=== PATIENT | female | born 1930 | race Native Hawaiian/Other Pacific Islander ===

== ENCOUNTER 2016-06-28 14:13 | Outpatient (CLI) | payer OTHER ==
[2016-06-28 14:25] LABS: PLATELET COUNT 172 K/uL (152-353)
== END 2016-06-28 15:30 | disposition home or self-care (01) ==
LOC: LAB 14:13
PROVIDERS: Nurse Practitioner Family
DX: I10 Essential (primary) hypertension (principal); E78.4 Other hyperlipidemia; E03.8 Other specified hypothyroidism; R53.83 Other fatigue; R53.81 Other malaise; E55.9 Vitamin D deficiency, unspecified; E78.00 Pure hypercholesterolemia, unspecified
CPT/HCPCS: 80053; 80061; 82306; 82607; 83036; 84436; 84443; 85027

== ENCOUNTER 2016-12-27 12:58 | Outpatient (CLI) | payer OTHER ==
[2016-12-27 13:18] LABS: PLATELET COUNT 186 K/uL (152-353)
[2016-12-27 13:48] LABS: POTASSIUM 4.1 mmol/L (3.6-5.2)
== END 2016-12-27 19:00 | disposition home or self-care (01) ==
LOC: LAB 12:58
PROVIDERS: Nurse Practitioner Family
DX: I10 Essential (primary) hypertension (principal); E03.8 Other specified hypothyroidism; E78.4 Other hyperlipidemia; Z79.899 Other long term (current) drug therapy; Z51.81 Encounter for therapeutic drug level monitoring
CPT/HCPCS: 80053; 80061; 83036; 84436; 84443; 85027

== ENCOUNTER 2017-03-04 08:52 | Emergency (ER) | payer OTHER ==
[~2017-03-04] VITALS: Ht 160 cm; Wt 59.4 kg
[2017-03-04 09:01] VITALS: TEMP 98.9
[2017-03-04] MEDS ORDERED: LISI10TA11 PO (09:04)
[2017-03-04 10:35] LABS: PLATELET COUNT 181 K/uL (152-353)
[2017-03-04 11:03] VITALS: BP 158/74
== END 2017-03-04 11:11 | disposition home or self-care (01) ==
LOC: ED 08:52
DX: S93.691A Other sprain of right foot, initial encounter (principal); S96.811A Strain of other specified muscles and tendons at ankle and foot level, right foot, initial encounter
CPT/HCPCS: 84550; 85027; 99283; J2930

== ENCOUNTER 2017-03-28 09:14 | Inpatient (IN) | payer OTHER ==
[~2017-03-28] VITALS: Ht 157.5 cm; Wt 59.0 kg
[2017-03-28] VITALS (32 sets, daily range): BP systolic 69–109; BP diastolic 33–74; TEMP 97–98.3; Ht 157.5 cm; Wt 59.0 kg
[~2017-03-28 09:14] MED LIST: LISI10TA11 PO
[2017-03-28 09:48] LABS: PLATELET COUNT 230 K/uL (152-353)
[2017-03-28 10:01] LABS: POTASSIUM 4.7 mmol/L (3.6-5.2)
[2017-03-28 15:31] LABS: PARTIAL THROMBOPLASTIN TIME 28.8 SECONDS (24.5-33.6)
== END 2017-03-28 21:52 | disposition short-term general hospital (02) | DRG 280 ==
LOC: ED 09:14 → ICU 11:00
PROVIDERS: ADMIT Family Medicine
DX: I21.4 Non-ST elevation (NSTEMI) myocardial infarction (principal); J18.8 Other pneumonia, unspecified organism; N17.8 Other acute kidney failure; E87.1 Hypo-osmolality and hyponatremia; I95.89 Other hypotension; R11.2 Nausea with vomiting, unspecified; E03.8 Other specified hypothyroidism; I10 Essential (primary) hypertension; K52.89 Other specified noninfective gastroenteritis and colitis; I25.5 Ischemic cardiomyopathy; D72.828 Other elevated white blood cell count
CPT/HCPCS: 36415; 80048; 81000; 82550; 82553; 83605; 84443; 84484; 85027; 85610; 85730; 87088; 93005; 94760; 96361; 96365; 99285; J0696; J1644; J1956; J2405; J3490

== ENCOUNTER 2017-03-28 17:41 | Outpatient (CLI) | payer OTHER | END 2017-03-28 18:13 | disposition short-term general hospital (02) | LOC: AMB 17:41 | DX: I21.4 Non-ST elevation (NSTEMI) myocardial infarction (principal); J18.8 Other pneumonia, unspecified organism; N17.8 Other acute kidney failure; E87.1 Hypo-osmolality and hyponatremia; I95.89 Other hypotension; R11.2 Nausea with vomiting, unspecified; E03.8 Other specified hypothyroidism; I10 Essential (primary) hypertension; K52.89 Other specified noninfective gastroenteritis and colitis; I25.5 Ischemic cardiomyopathy; D72.828 Other elevated white blood cell count | CPT/HCPCS: A0425; A0427 ==

== ENCOUNTER 2017-04-10 12:55 | Outpatient (CLI) | payer OTHER ==
[2017-04-10 13:39] LABS: PLATELET COUNT 204 K/uL (152-353)
[2017-04-10 15:57] LABS: POTASSIUM 3.9 mmol/L (3.6-5.2); SODIUM 139.6 mmol/L (136-145)
[2017-04-10 15:58] LABS: LDL CHOLESTEROL 87.1 mg/dL (0-99*)
== END 2017-04-10 19:50 | disposition home or self-care (01) ==
LOC: LAB 12:55
PROVIDERS: Nurse Practitioner Family
DX: E78.4 Other hyperlipidemia (principal); E03.8 Other specified hypothyroidism; I10 Essential (primary) hypertension; R53.83 Other fatigue; R53.81 Other malaise; I95.89 Other hypotension; Z79.899 Other long term (current) drug therapy; Z51.81 Encounter for therapeutic drug level monitoring; R06.09 Other forms of dyspnea
CPT/HCPCS: 80053; 80061; 83036; 83880; 84436; 84443; 85027

== ENCOUNTER 2017-10-11 11:03 | Outpatient (CLI) | payer OTHER ==
[2017-10-11 11:23] LABS: PLATELET COUNT 230 K/uL (152-353)
[2017-10-11 11:30] LABS: POTASSIUM 4.6 mmol/L (3.6-5.2)
== END 2017-10-11 19:31 | disposition home or self-care (01) ==
LOC: LAB 11:03
PROVIDERS: Nurse Practitioner Family
DX: Z00.00 Encounter for general adult medical examination without abnormal findings (principal); E78.5 Hyperlipidemia, unspecified; E03.9 Hypothyroidism, unspecified; I10 Essential (primary) hypertension; R53.83 Other fatigue; Z79.899 Other long term (current) drug therapy; R53.81 Other malaise; R06.09 Other forms of dyspnea
CPT/HCPCS: 80053; 80061; 83036; 83880; 84436; 84443; 85027

== ENCOUNTER 2017-10-25 06:13 | Emergency (ER) | payer OTHER ==
[~2017-10-25] VITALS: Ht 160 cm; Wt 59.9 kg
[2017-10-25 06:10] VITALS: TEMP 98
[2017-10-25 06:45] LABS: PLATELET COUNT 231 K/uL (152-353)
[2017-10-25 06:50] LABS: POTASSIUM 4.7 mmol/L (3.6-5.2)
[2017-10-25 09:00] VITALS: BP 135/57
== END 2017-10-25 09:00 | disposition short-term general hospital (02) ==
LOC: ED 06:13
PROVIDERS: Emergency Medicine
DX: R07.89 Other chest pain (principal); I48.91 Unspecified atrial fibrillation; I44.7 Left bundle-branch block, unspecified
CPT/HCPCS: 36415; 80053; 82550; 82553; 84484; 85027; 93005; 96374; 99284; J2270

== ENCOUNTER 2017-10-25 09:03 | Outpatient (CLI) | payer OTHER, MEDICARE | END 2017-10-25 09:42 | disposition short-term general hospital (02) | LOC: AMB 09:03 | DX: R07.89 Other chest pain (principal); I48.91 Unspecified atrial fibrillation; I44.7 Left bundle-branch block, unspecified | CPT/HCPCS: A0425; A0427 ==

== ENCOUNTER 2018-04-26 03:19 | Inpatient (IN) | payer OTHER, MEDICARE ==
[2018-04-26] VITALS (7 sets, daily range): BP systolic 100–144; BP diastolic 48–89; TEMP 97.7–99.2; Ht 160 cm; Wt 60.0 kg
[~2018-04-26] VITALS: Ht 160 cm; Wt 60.0 kg
[2018-04-26 03:53] LABS: PLATELET COUNT 392 K/uL (152-353)
[2018-04-26 03:58] LABS: POTASSIUM 4.4 mmol/L (3.6-5.2)
[2018-04-26] MEDS ORDERED: AMIODARONE HYD200 MG PO (08:31)
[2018-04-26] MEDS ORDERED: CARV6.25 PO (08:32)
[2018-04-26] MEDS ORDERED: ASA LOW DOSE81 MG PO (08:32)
[2018-04-26] MEDS ORDERED: PANTOPRAZOLE 40MG TA PO (08:32)
[2018-04-26] MEDS ORDERED: LEVO0.0218 PO (08:33)
[2018-04-26] MEDS ORDERED: FURO20TA67 PO (08:33)
[2018-04-26] MEDS ORDERED: DOCU100C10 PO (08:33)
[2018-04-26] MEDS ORDERED: LIPITOR20 MG PO (08:34)
[2018-04-27 04:00] VITALS: BP 88/44; TEMP 98.3
[2018-04-27 05:34] LABS: PLATELET COUNT 335 K/uL (152-353)
[2018-04-27 05:50] LABS: POTASSIUM 4.6 mmol/L (3.6-5.2)
== END 2018-04-27 07:27 | disposition expired | DRG 208 ==
LOC: ED 03:19 → MED/SURG 04:15
PROVIDERS: Emergency Medicine; ADMIT Internal Medicine
PROC: 30233N1 Transfusion of Nonautologous Red Blood Cells into Peripheral Vein, Percutaneous Approach (ICD-10-PCS; principal; 2018-04-27)
PROC: 5A1935Z Respiratory Ventilation, Less than 24 Consecutive Hours (ICD-10-PCS; 2018-04-27)
PROC: 5A02215 Assistance with Cardiac Output using Pulsatile Compression, Continuous (ICD-10-PCS; 2018-04-27)
PROC: 0BH17EZ Insertion of Endotracheal Airway into Trachea, Via Natural or Artificial Opening (ICD-10-PCS; 2018-04-27)
DX: J18.8 Other pneumonia, unspecified organism (principal); N17.8 Other acute kidney failure; D64.89 Other specified anemias; K21.9 Gastro-esophageal reflux disease without esophagitis; E78.49 Other hyperlipidemia; I10 Essential (primary) hypertension; E03.8 Other specified hypothyroidism; F41.8 Other specified anxiety disorders; I46.9 Cardiac arrest, cause unspecified
CPT/HCPCS: 31500; 36415; 80053; 82550; 82607; 82728; 82747; 83036; 83540; 83880; 84443; 84484; 85007; 85027; 86850; 86900; 86901; 86922; 87040; 87899; 92950; 93005; 94640; 94664; 94760; 96365; 96375; 99284; J0456; J0696; J1650; J1940; J2060; J2405; J2930; P9016